=== PATIENT | male | born 1940 | race Caucasian/White ===

== ENCOUNTER 2020-07-13 09:26 | Outpatient (CLI) | payer MEDICARE, OTHER ==
[2020-07-13 11:51] LABS: Anion Gap 15 mmol/L (10-20); BUN (Urea Nitrogen) 14 mg/dL (8.4-25.7); Calc. Creatinine Clearance 0 mL/min (70-130); Calcium 9.3 mg/dL (7.8-10.44); Carbon Dioxide 28 mmol/L (23-31); Chloride 102 mmol/L (98-107); Glucose 86 mg/dL (83-110); Potassium 4.6 mmol/L (3.5-5.1); Sodium 140 mmol/L (136-145)
== END 2020-07-13 09:27 | disposition home or self-care (01) ==
LOC: CSHLAB 09:26
PROVIDERS: ATTEND Otolaryngology Plastic Surgery within the Head & Neck
DX: Z01.818 Encounter for other preprocedural examination (principal); I44.0 Atrioventricular block, first degree
CPT/HCPCS: 80048; 85014; 85018; 93005; 93010

== ENCOUNTER 2020-07-22 06:25 | Day surgery (SDC) | payer MEDICARE, OTHER ==
[2020-07-21 10:39] VITALS: BMI 30.8
[~2020-07-22 06:25] MED LIST: Lidocaine 1% MPF 2 ML VIAL ONE
[2020-07-22] MEDS ORDERED: Ondansetron PF 4 MG/2 ML Vial ONE (06:34)
[2020-07-22] MEDS ORDERED: Rocuronium Bromide 10 MG/ML (10ML VIAL) ONE (06:34)
[2020-07-22] MEDS ORDERED: Dexamethasone 20 MG/5 ML VIAL ONE (06:34)
[2020-07-22] MEDS ORDERED: Fentanyl 250 MCG/5 ML VIAL ONE (06:34)
[2020-07-22] MEDS ORDERED: Midazolam HCl 2 mg/2 ml Vial ONE (06:34)
[2020-07-22] MEDS ORDERED: Lidocaine 1% PF 5 ML VIAL ONE (06:34)
[2020-07-22] MEDS ORDERED: PROPOFOL 20 ML ONE ×2 (06:34→08:12)
[2020-07-22] MEDS ORDERED: EPINEPHrine 1 MG/ML AMP ONE (06:42)
[2020-07-22] MEDS ORDERED: Lidocaine 1% w/Epinephrine 1:100K 20 ML VIAL ONE (06:42)
[2020-07-22] MEDS ORDERED: Mupirocin 2% Ointment 22 GM Tube ONE (06:43)
[2020-07-22] MEDS ORDERED: Methylene Blue 50 MG/10 ML AMPUL ONE (06:43)
[2020-07-22] MEDS ORDERED: Phenylephrine 10 MG/ML VIAL ONE (07:01)
[2020-07-22] MEDS ORDERED: CEFAZOLIN 1 GM VIAL ONE (07:02)
[2020-07-22] MEDS ORDERED: Ketorolac Tromethamine 30 MG/ML VIAL ONE (09:44)
[2020-07-22] MEDS ORDERED: HYDROcodone/Acetaminophen 5/325 mg Tablet ONE (10:34)
== END 2020-07-22 11:05 | disposition home or self-care (01) ==
LOC: CSHSDC 06:25 → MERGE 10:15 → CSHSDC 11:05
PROVIDERS: ATTEND Otolaryngology Plastic Surgery within the Head & Neck
DX: H90.3 Sensorineural hearing loss, bilateral (principal); I25.10 Atherosclerotic heart disease of native coronary artery without angina pectoris; Z90.49 Acquired absence of other specified parts of digestive tract; Z95.1 Presence of aortocoronary bypass graft; Z79.899 Other long term (current) drug therapy; Z79.01 Long term (current) use of anticoagulants
CPT/HCPCS: 69930; 70250; 94640; L8614 ×2; Q9968; J0171; J0690; J1100; J1885; J2250; J2370; J2405; J2704; J3010; J7620

== ENCOUNTER 2022-04-23 05:28 | Observation (INO) | payer MEDICARE, OTHER ==
[2022-04-23] MEDS ORDERED: Mupirocin 2% Ointment 22 GM Tube ONE (06:28)
[2022-04-23] MEDS ORDERED: Lidocaine 1% w/Epinephrine 1:100K 30 ML VIAL ONE (06:28)
[2022-04-23] MEDS ORDERED: CEFAZOLIN 1 GM VIAL ONE (06:29)
[2022-04-23] MEDS ORDERED: Fentanyl 100 MCG/2 ML VIAL ONE ×2 (06:48→09:11)
[2022-04-23] MEDS ORDERED: Ondansetron PF 4 MG/2 ML Vial ONE (06:48)
[2022-04-23] MEDS ORDERED: Midazolam HCl 2 mg/2 ml Vial ONE (06:48)
[2022-04-23] MEDS ORDERED: Dexamethasone 4 mg/ml Vial ONE (06:48)
[2022-04-23] MEDS ORDERED: PROPOFOL 20 ML ONE (06:48)
[2022-04-23] MEDS ORDERED: Lidocaine 1% PF 5 ML VIAL ONE (06:48)
[2022-04-23] MEDS ORDERED: Rocuronium Bromide 10 MG/ML (10ML VIAL) ONE (06:48)
[2022-04-23] MEDS ORDERED: PHENYLEPHRINE-NS 100 MCG/ML 10 ML SYRINGE ONE (07:23)
[2022-04-23 07:58] LABS: SARS-CoV-2 NAA Rapid Test Not Detected (NotDetected)
[2022-04-23] MEDS ORDERED: ePHEDrine Sulfate 50 MG/10 ML VIAL ONE (08:33)
[2022-04-23] MEDS ORDERED: Acetaminophen 325 MG TAB PO PRN (08:35)
[2022-04-23] MEDS ORDERED: Ondansetron PF 4 MG/2 ML Vial IVP PRN (08:35)
[2022-04-23] MEDS ORDERED: HYDROcodone/Acetaminophen 5/325 mg Tablet ONE (10:35)
[2022-04-23] MEDS: Budesonide 0.5 MG/2 ML NEB NEB SCH (13:20)
[2022-04-23] MEDS: Rosuvastatin 10 MG TAB PO SCH (13:26)
[2022-04-23] MEDS: Aspirin Chewable 81 MG TAB PO SCH (13:26)
[2022-04-23 14:12] VITALS: BMI 30.4
[2022-04-23] MEDS: HYDROcodone/Acetaminophen 5/325 mg Tablet PO PRN (15:01)
[2022-04-23] MEDS: Morphine 4 MG/ML VIAL SLOW IVP PRN (19:01)
[2022-04-24] MEDS: Morphine 4 MG/ML VIAL SLOW IVP PRN (02:28)
[2022-04-24] MEDS: HYDROcodone/Acetaminophen 5/325 mg Tablet PO PRN ×2 (05:35→09:44)
[2022-04-24] MEDS: Budesonide 0.5 MG/2 ML NEB NEB SCH (08:05)
[2022-04-24] MEDS: Aspirin Chewable 81 MG TAB PO SCH (09:45)
[2022-04-24] MEDS: Rosuvastatin 10 MG TAB PO SCH (09:46)
[2022-04-24 09:56] VITALS: BP 131/84; TEMP 97.8
== END 2022-04-24 10:33 | disposition home or self-care (01) ==
LOC: CSHSDC 05:28 → CSHTELE 08:35
PROVIDERS: ADMIT Otolaryngology Plastic Surgery within the Head & Neck; ATTEND Otolaryngology Plastic Surgery within the Head & Neck
PROC: 0CBB0ZZ Excision of Right Parotid Duct, Open Approach (ICD-10-PCS; principal; 2022-04-23)
DX: D11.0 Benign neoplasm of parotid gland (principal); I25.10 Atherosclerotic heart disease of native coronary artery without angina pectoris; J44.9 Chronic obstructive pulmonary disease, unspecified; I48.91 Unspecified atrial fibrillation; Z20.822 Contact with and (suspected) exposure to COVID-19; Z79.82 Long term (current) use of aspirin; Z79.01 Long term (current) use of anticoagulants; Z79.899 Other long term (current) drug therapy
CPT/HCPCS: 42415; 87070; 87075; 87205; 94640; C1781; U0002; 88307; 96374; 96376; G0378; J0690; J1100; J2250; J2270; J2405; J2704; J3010; J7626